=== PATIENT | female | born 1935 | race Caucasian/White ===

== ENCOUNTER 2018-05-24 12:44 | Inpatient (IN) | payer MEDICARE, MEDICAID ==
[~2018-05-24] VITALS: Ht 152.4 cm; Wt 56.4 kg
[2018-05-24 13:12] LABS: BASOPHILS % (AUTO) 0 % (0-1); EOSINOPHILS % (AUTO) 0 % (0-6); HEMATOCRIT 36.9 % (35.0-45.0); HEMOGLOBIN 11.9 g/dl (12.0-16.0); LYMPHOCYTES # (AUTO) 0.8 X10'3 (1.1-4.8); LYMPHOCYTES % (AUTO) 2.1 % (21-51); MEAN CORPUSCULAR HEMOGLOBIN 25.5 PG (27.0-31.0); MEAN CORPUSCULAR HGB CONC 32.3 % (33.0-36.5); MEAN CORPUSCULAR VOLUME 79.1 FL (78-98); MEAN PLATELET VOLUME 9.2 FL (7.4-10.4); MONOCYTES # (AUTO) 1.2 X10'3 (0-0.9); MONOCYTES % (AUTO) 3.4 % (2-12); NEUTROPHILS # (AUTO) 33.7 X10'3 (1.8-7.7); NEUTROPHILS % (AUTO) 94.5 % (42-75); PLATELET COUNT 244 X10'3 (140-440); RED BLOOD COUNT 4.66 X10'6 (4.20-5.60)
[2018-05-24 13:16] LABS: WHITE BLOOD COUNT 35.7 X10'3 (4.5-11.0)
[2018-05-24 13:22] LABS: INR 1.2 INR; PROTHROMBIN TIME 11.9 SECONDS (9.0-12.0)
[2018-05-24 13:27] LABS: ALANINE AMINOTRANSFERASE 19 U/L (12-78); ALBUMIN 2.2 G/DL (3.4-5.0); ALBUMIN/GLOBULIN RATIO 0.6 (1.1-1.5); ALKALINE PHOSPHATASE 108 IU/L (46-116); ANION GAP 13 (8-16); ASPARTATE AMINO TRANSFERASE 56 U/L (10-37); BILIRUBIN,TOTAL 0.5 MG/DL (0.1-1.0); BLOOD UREA NITROGEN 20 MG/DL (7-18); CALCIUM 7.7 MG/DL (8.5-10.1); CHLORIDE 109 MMOL/L (99-107); CREATININE 1.82 MG/DL (0.40-0.90); GLUCOSE 149 MG/DL (70-104); POTASSIUM 3.3 MMOL/L (3.5-5.1); SODIUM 144 MMOL/L (135-145); TOTAL CARBON DIOXIDE 22.3 MMOL/L (24-32); TOTAL PROTEIN 5.9 G/DL (6.4-8.2); eGFR 27 ML/MIN
[2018-05-24 13:29] LABS: ANISOCYTOSIS 3+; LARGE PLATELETS FEW; PLATELET ESTIMATE NORMAL; TOTAL CELLS COUNTED 100
[2018-05-24 13:30] LABS: HYPOCHROMASIA 1+; TARGET CELLS FEW
[2018-05-24 13:33] LABS: MAGNESIUM 2.2 MG/DL (1.5-2.4)
[2018-05-24 14:24] LABS: CLARITY,URINE CLOUDY (Clear); COLOR,URINE YELLOW (Yellow); GLUCOSE, URINE NEGATIVE (Neg); KETONES,URINE NEGATIVE (Neg); LEUKOCYTE ESTERASE ,URINE LARGE (Neg); NITRITES, URINE POSITIVE (Neg); OCCULT BLOOD,URINE LARGE (Neg); PROTEIN,URINE 30 mg/dl (Neg); UA COLLECTION TYPE STRAIGHT CATH; UROBILINOGEN,URINE 0.2 E.U/dL (0.2-1.0)
[2018-05-24 14:32] LABS: BACTERIA,URINE 4+ /HPF (Neg); WBC CLUMPS,URINE MANY /HPF (NEGATIVE); WBC,URINE 50-100 /HPF (0-4)
[2018-05-24 14:33] LABS: MUCUS STRANDS FEW /LPF (Neg)
[2018-05-24 14:34] LABS: SQUAMOUS EPITHELIAL CELL,UR NONE SEEN /LPF (FEW)
[2018-05-24] MEDS ORDERED: OXYB5TAB11 PO (14:38)
[2018-05-24] MEDS ORDERED: ASPI-1265 PO (14:38)
[2018-05-24] MEDS ORDERED: ALLO100T PO (14:38)
[2018-05-24] MEDS ORDERED: TRAM50TA2 PO (14:38)
[2018-05-24] MEDS ORDERED: RALO60TA55 PO (14:38)
[2018-05-24] MEDS ORDERED: PREG50CA PO (14:38)
[2018-05-24] MEDS ORDERED: LISI-600 PO (14:38)
[2018-05-24] MEDS ORDERED: UMEC1DIS INH (14:38)
[2018-05-24] MEDS ORDERED: magnesium 1gm/100ml D5W IVPB 100 ML IV PRN (14:45)
[2018-05-24] MEDS ORDERED: potassium Cl 20 mEq SR tablet PO PRN (14:45)
[2018-05-24] MEDS ORDERED: acetaminophen 325mg tablet PO PRN ×2 (14:45)
[2018-05-24] MEDS ORDERED: magnesium hydroxide 30ml (MOM) UD suspension PO PRN (14:45)
[2018-05-24] MEDS ORDERED: magnesium 4gm in 100ml NS 100 ML IV PRN (14:45)
[2018-05-24] MEDS ORDERED: ondansetron/PF 4mg/2ml inj IV PRN (14:45)
[2018-05-24] MEDS ORDERED: potassium Cl 40MEQ/NS 500ml 500 ML IV PRN ×2 (14:45)
[2018-05-24] MEDS ORDERED: mag hydrox/Alum hydrox/simeth 30ml oral suspension PO PRN (14:45)
[2018-05-24] MEDS ORDERED: magnesium Cl slow-release 64mg tablet PO PRN (14:45)
[2018-05-24] MEDS ORDERED: traMADol 50MG tablet PO PRN (14:55)
[2018-05-24] MEDS ORDERED: vancomycin/NS 1 GM ADD-VANTAGE 250 ML X 1 DOSE IV ONE (15:20)
[2018-05-24] MEDS: normal saline 1000ml 1,000 ML IV SCH (15:30)
[2018-05-24] MEDS ORDERED: temazepam 15mg capsule PO PRN (21:00)
[2018-05-24] MEDS ORDERED: non-formulary drug (Pregabalin (Lyrica) 1 CAP) PO SCH (21:00)
[2018-05-24 21:30] VITALS: BP 149/82
[2018-05-24] MEDS: pregabalin 25mg capsule PO SCH (22:17)
[2018-05-24] MEDS: heparin, porcine 5000 units/ml vial SQ SCH (22:18)
[2018-05-24] MEDS: potassium Cl 20 mEq SR tablet PO PRN (23:40)
[2018-05-25] VITALS: BP 136/71
[2018-05-25 01:36] LABS: BASOPHILS % (AUTO) 0.1 % (0-1); EOSINOPHILS % (AUTO) 0.1 % (0-6); HEMATOCRIT 36.4 % (35.0-45.0); LYMPHOCYTES # (AUTO) 1.3 X10'3 (1.1-4.8); MEAN CORPUSCULAR HEMOGLOBIN 26.1 PG (27.0-31.0); MEAN CORPUSCULAR HGB CONC 32.9 % (33.0-36.5); MEAN CORPUSCULAR VOLUME 79.5 FL (78-98); MEAN PLATELET VOLUME 9.4 FL (7.4-10.4); MONOCYTES # (AUTO) 1.4 X10'3 (0-0.9); MONOCYTES % (AUTO) 4.5 % (2-12); NEUTROPHILS # (AUTO) 28.6 X10'3 (1.8-7.7); NEUTROPHILS % (AUTO) 91.3 % (42-75); PLATELET COUNT 250 X10'3 (140-440); RED BLOOD COUNT 4.58 X10'6 (4.20-5.60); RED CELL DISTRIBUTION WIDTH 21.9 % (11.5-14.5)
[2018-05-25 01:50] LABS: WHITE BLOOD COUNT 31.3 X10'3 (4.5-11.0)
[2018-05-25 01:51] LABS: ALANINE AMINOTRANSFERASE 21 U/L (12-78); ALBUMIN/GLOBULIN RATIO 0.5 (1.1-1.5); ALKALINE PHOSPHATASE 96 IU/L (46-116); ANION GAP 9 (8-16); ASPARTATE AMINO TRANSFERASE 44 U/L (10-37); BILIRUBIN,TOTAL 0.5 MG/DL (0.1-1.0); BLOOD UREA NITROGEN 22 MG/DL (7-18); BUN/CREATININE RATIO 15.5 (6.6-38.0); CALCIUM 8.1 MG/DL (8.5-10.1); CHLORIDE 110 MMOL/L (99-107); CREATININE 1.42 MG/DL (0.40-0.90); GLUCOSE 90 MG/DL (70-104); POTASSIUM 3.7 MMOL/L (3.5-5.1); SODIUM 143 MMOL/L (135-145); TOTAL CARBON DIOXIDE 24.4 MMOL/L (24-32); TOTAL PROTEIN 6.2 G/DL (6.4-8.2); eGFR 35 ML/MIN
[2018-05-25 02:13] LABS: TOTAL CELLS COUNTED 100
[2018-05-25 02:14] LABS: ANISOCYTOSIS 3+; PLATELET ESTIMATE NORMAL; TARGET CELLS 1+
[2018-05-25] MEDS: normal saline 1000ml 1,000 ML IV SCH (03:13)
[2018-05-25] MEDS: ipratropium/albuterol 3ml nebule NEB PRN ×2 (03:24→12:03)
[2018-05-25 08:00] VITALS: BP 178/82
[2018-05-25] MEDS: oxybutynin 5mg tablet PO SCH (08:00)
[2018-05-25] MEDS ORDERED: non-formulary drug (Umeclidinium Brm/Vilanterol Tr (Anoro Ellipta 62.5-25 Mcg INH) 1 PUFF) INH SCH (08:00)
[2018-05-25] MEDS: K and/or MAG REPLACEMENT MC SCH (08:00)
[2018-05-25] MEDS: lactobacillus rhamnosus 10,000 MMU CELLS/CAPSULE PO SCH ×2 (08:00→20:43)
[2018-05-25] MEDS: allopurinol 100mg tablet PO SCH (08:00)
[2018-05-25] MEDS: raloxifene 60mg tablet PO SCH (08:00)
[2018-05-25] MEDS ORDERED: ANORO ELLIPTA IH SCH (08:00)
[2018-05-25] MEDS: aspirin 81mg tablet.DR PO SCH (08:00)
[2018-05-25] MEDS: cefepime 1GM/NS ADD-VANTAGE 100 ML IV SCH (08:01)
[2018-05-25] MEDS: lisinopril 10 MG tablet PO SCH (08:01)
[2018-05-25] MEDS: heparin, porcine 5000 units/ml vial SQ SCH ×2 (08:04→20:44)
[2018-05-25 09:42] LABS: HEMATOCRIT 35.7 % (35.0-45.0); HEMOGLOBIN 11.8 g/dl (12.0-16.0); MEAN CORPUSCULAR HEMOGLOBIN 25.7 PG (27.0-31.0); MEAN CORPUSCULAR HGB CONC 32.9 % (33.0-36.5); MEAN CORPUSCULAR VOLUME 78.1 FL (78-98); MEAN PLATELET VOLUME 9.5 FL (7.4-10.4); PLATELET COUNT 254 X10'3 (140-440); RED BLOOD COUNT 4.58 X10'6 (4.20-5.60); RED CELL DISTRIBUTION WIDTH 23.3 % (11.5-14.5)
[2018-05-25 09:48] LABS: WHITE BLOOD COUNT 27.7 X10'3 (4.5-11.0)
[2018-05-25 09:57] LABS: ANISOCYTOSIS 3+; PLATELET ESTIMATE NORMAL; TOTAL CELLS COUNTED 100
[2018-05-25 09:58] LABS: POLYCHROMASIA FEW; TARGET CELLS 1+
[2018-05-25 10:01] LABS: ALANINE AMINOTRANSFERASE 20 U/L (12-78); ALBUMIN/GLOBULIN RATIO 0.5 (1.1-1.5); ALKALINE PHOSPHATASE 96 IU/L (46-116); ANION GAP 9 (8-16); ASPARTATE AMINO TRANSFERASE 44 U/L (10-37); BILIRUBIN,TOTAL 0.5 MG/DL (0.1-1.0); BLOOD UREA NITROGEN 21 MG/DL (7-18); BUN/CREATININE RATIO 16.4 (6.6-38.0); CHLORIDE 109 MMOL/L (99-107); CREATININE 1.28 MG/DL (0.40-0.90); GLUCOSE 101 MG/DL (70-104); POTASSIUM 3.6 MMOL/L (3.5-5.1); SODIUM 142 MMOL/L (135-145); TOTAL CARBON DIOXIDE 23.8 MMOL/L (24-32); TOTAL PROTEIN 6.3 G/DL (6.4-8.2); eGFR 40 ML/MIN
[2018-05-25 10:04] LABS: TROPONIN I 0.15 NG/ML (0.0-0.05)
[2018-05-25] MEDS ORDERED: normal saline 1000ml 1,000 ML IV SCH (10:15)
[2018-05-25] MEDS: vancomycin/NS 1 GM ADD-VANTAGE 250 ML IV SCH (10:23)
[2018-05-25 10:26] LABS: ABG BASE EXCESS -2.4 mmol/L (-2.0-3.0); ABG HCO3 20.7 mmol/L (22.0-26.0); ABG OXYGEN SATURATION 88.6 % (95-98); ABG PCO2 (T) 30.9 mmHg (32.0-45.0); ABG PH (T) 7.443 (7.350-7.450); ABG PO2 (T) 51.7 mmHg (83-108); ALLEN'S TEST Positive; FCOHb 0.5 % (0.5-1.5); FLOW 15 L/min; FMetHb 0.2 % (0.3-1.12); TOTAL HEMOGLOBIN 13.2 G/dl (12.0-16.0)
[2018-05-25] MEDS ORDERED: metoprolol tartrate 1mg/ml inj IV PRN (10:35)
[2018-05-25] MEDS ORDERED: aminophylline 250mg/10ml inj. IV PRN (10:35)
[2018-05-25] MEDS ORDERED: nitroGLYCERIN 0.4mg SUBLingual tab SL PRN (10:35)
[2018-05-25] MEDS ORDERED: regadenoson 0.4mg/5ml syringe IV ONE (10:35)
[2018-05-25 12:00] VITALS: BP 164/95
[2018-05-25] MEDS: lactose-reduced food (Ensure Enlive) - 237ml bottle PO SCH ×2 (13:00→18:00)
[2018-05-25 13:18] LABS: ALBUMIN 2.3 G/DL (3.4-5.0); ANION GAP 12 (8-16); BLOOD UREA NITROGEN 19 MG/DL (7-18); BUN/CREATININE RATIO 12.8 (6.6-38.0); CALCIUM 8.3 MG/DL (8.5-10.1); CHLORIDE 108 MMOL/L (99-107); CREATININE 1.49 MG/DL (0.40-0.90); GLUCOSE 101 MG/DL (70-104); POTASSIUM 3.2 MMOL/L (3.5-5.1); SODIUM 143 MMOL/L (135-145); TOTAL CARBON DIOXIDE 23.3 MMOL/L (24-32); eGFR 33 ML/MIN
[2018-05-25] MEDS ORDERED: vancomycin/NS 1 GM ADD-VANTAGE 250 ML IV SCH (16:00)
[2018-05-25 18:00] VITALS: BP 161/92
[2018-05-25] MEDS: potassium Cl 20 mEq SR tablet PO PRN ×2 (19:01→23:44)
[2018-05-25] MEDS: nicotine 14mg patch - 24hr TD SCH (19:30)
[2018-05-25] MEDS: pregabalin 25mg capsule PO SCH (20:43)
[2018-05-25 23:30] VITALS: BP 150/91
[2018-05-25] MEDS: methylPREDNISolone sod succ/PF 40mg inj. IV SCH (23:44)
[2018-05-26] VITALS (12 sets, daily range): BP systolic 129–165; BP diastolic 63–93
[2018-05-26] MEDS: potassium Cl 20 mEq SR tablet PO PRN (03:56)
[2018-05-26 06:04] LABS: BASOPHILS % (AUTO) 0 % (0-1); EOSINOPHILS % (AUTO) 0 % (0-6); HEMATOCRIT 39.1 % (35.0-45.0); HEMOGLOBIN 12.6 g/dl (12.0-16.0); LYMPHOCYTES # (AUTO) 0.4 X10'3 (1.1-4.8); LYMPHOCYTES % (AUTO) 1.7 % (21-51); MEAN CORPUSCULAR HEMOGLOBIN 25.3 PG (27.0-31.0); MEAN CORPUSCULAR HGB CONC 32.3 % (33.0-36.5); MEAN CORPUSCULAR VOLUME 78.5 FL (78-98); MEAN PLATELET VOLUME 9.9 FL (7.4-10.4); MONOCYTES # (AUTO) 0.2 X10'3 (0-0.9); MONOCYTES % (AUTO) 0.9 % (2-12); NEUTROPHILS # (AUTO) 19.9 X10'3 (1.8-7.7); NEUTROPHILS % (AUTO) 97.4 % (42-75); PLATELET COUNT 276 X10'3 (140-440); RED BLOOD COUNT 4.98 X10'6 (4.20-5.60); RED CELL DISTRIBUTION WIDTH 23.8 % (11.5-14.5); WHITE BLOOD COUNT 20.5 X10'3 (4.5-11.0)
[2018-05-26 06:29] LABS: ALANINE AMINOTRANSFERASE 24 U/L (12-78); ALBUMIN 2.1 G/DL (3.4-5.0); ALBUMIN/GLOBULIN RATIO 0.4 (1.1-1.5); ALKALINE PHOSPHATASE 98 IU/L (46-116); ANION GAP 12 (8-16); ASPARTATE AMINO TRANSFERASE 37 U/L (10-37); BILIRUBIN,TOTAL 0.5 MG/DL (0.1-1.0); BLOOD UREA NITROGEN 18 MG/DL (7-18); BUN/CREATININE RATIO 16.7 (6.6-38.0); CALCIUM 8.4 MG/DL (8.5-10.1); CHLORIDE 107 MMOL/L (99-107); CREATININE 1.08 MG/DL (0.40-0.90); GLUCOSE 135 MG/DL (70-104); MAGNESIUM 1.7 MG/DL (1.5-2.4); POTASSIUM 4.4 MMOL/L (3.5-5.1); SODIUM 141 MMOL/L (135-145); TOTAL CARBON DIOXIDE 22.2 MMOL/L (24-32); TOTAL PROTEIN 6.8 G/DL (6.4-8.2); eGFR 48 ML/MIN
[2018-05-26] MEDS: K and/or MAG REPLACEMENT MC SCH (08:00)
[2018-05-26] MEDS: lactose-reduced food (Ensure Enlive) - 237ml bottle PO SCH ×3 (08:00→18:00)
[2018-05-26] MEDS: nicotine 14mg patch - 24hr TD SCH (08:00)
[2018-05-26] MEDS: raloxifene 60mg tablet PO SCH (08:01)
[2018-05-26] MEDS: methylPREDNISolone sod succ/PF 40mg inj. IV SCH ×2 (08:01→16:19)
[2018-05-26] MEDS: cefepime 1GM/NS ADD-VANTAGE 100 ML IV SCH (08:01)
[2018-05-26] MEDS: allopurinol 100mg tablet PO SCH (08:02)
[2018-05-26] MEDS: lactobacillus rhamnosus 10,000 MMU CELLS/CAPSULE PO SCH ×2 (08:02→20:37)
[2018-05-26] MEDS: oxybutynin 5mg tablet PO SCH (08:02)
[2018-05-26] MEDS: aspirin 81mg tablet.DR PO SCH (08:02)
[2018-05-26] MEDS: lisinopril 10 MG tablet PO SCH (08:03)
[2018-05-26] MEDS: heparin, porcine 5000 units/ml vial SQ SCH ×2 (08:04→20:37)
[2018-05-26] MEDS: vancomycin/NS 1 GM ADD-VANTAGE 250 ML IV SCH (10:21)
[2018-05-26] MEDS: normal saline 1000ml 1,000 ML IV SCH (11:56)
[2018-05-26] MEDS ORDERED: regadenoson 0.4mg/5ml syringe IV ONE (14:25)
[2018-05-26] MEDS ORDERED: aminophylline inj. 10 ML IV ONE (14:25)
[2018-05-26] MEDS: pregabalin 25mg capsule PO SCH (20:37)
[2018-05-27] VITALS: BP 152/89
[2018-05-27] MEDS: methylPREDNISolone sod succ/PF 40mg inj. IV SCH ×4 (00:08→23:47)
[2018-05-27 06:48] LABS: BASOPHILS % (AUTO) 0 % (0-1); EOSINOPHILS % (AUTO) 0 % (0-6); HEMATOCRIT 38.6 % (35.0-45.0); HEMOGLOBIN 12.7 g/dl (12.0-16.0); LYMPHOCYTES # (AUTO) 0.6 X10'3 (1.1-4.8); LYMPHOCYTES % (AUTO) 2.8 % (21-51); MEAN CORPUSCULAR HEMOGLOBIN 25.8 PG (27.0-31.0); MEAN CORPUSCULAR HGB CONC 32.9 % (33.0-36.5); MEAN CORPUSCULAR VOLUME 78.3 FL (78-98); MEAN PLATELET VOLUME 10.6 FL (7.4-10.4); MONOCYTES # (AUTO) 0.4 X10'3 (0-0.9); MONOCYTES % (AUTO) 1.8 % (2-12); NEUTROPHILS # (AUTO) 19.2 X10'3 (1.8-7.7); NEUTROPHILS % (AUTO) 95.4 % (42-75); PLATELET COUNT 268 X10'3 (140-440); RED BLOOD COUNT 4.92 X10'6 (4.20-5.60); RED CELL DISTRIBUTION WIDTH 23.6 % (11.5-14.5); WHITE BLOOD COUNT 20.2 X10'3 (4.5-11.0)
[2018-05-27 07:26] LABS: ALANINE AMINOTRANSFERASE 20 U/L (12-78); ALBUMIN 2.1 G/DL (3.4-5.0); ALBUMIN/GLOBULIN RATIO 0.5 (1.1-1.5); ALKALINE PHOSPHATASE 100 IU/L (46-116); ANION GAP 11 (8-16); ASPARTATE AMINO TRANSFERASE 25 U/L (10-37); BILIRUBIN,TOTAL 0.4 MG/DL (0.1-1.0); BLOOD UREA NITROGEN 27 MG/DL (7-18); CALCIUM 8.5 MG/DL (8.5-10.1); CHLORIDE 107 MMOL/L (99-107); CREATININE 1.04 MG/DL (0.40-0.90); GLUCOSE 126 MG/DL (70-104); MAGNESIUM 1.9 MG/DL (1.5-2.4); POTASSIUM 4.3 MMOL/L (3.5-5.1); SODIUM 140 MMOL/L (135-145); TOTAL CARBON DIOXIDE 21.8 MMOL/L (24-32); TOTAL PROTEIN 6.7 G/DL (6.4-8.2); eGFR 51 ML/MIN
[2018-05-27 08:00] VITALS: BP 157/100
[2018-05-27] MEDS: nicotine 14mg patch - 24hr TD SCH (08:00)
[2018-05-27] MEDS: K and/or MAG REPLACEMENT MC SCH (08:00)
[2018-05-27] MEDS: lactose-reduced food (Ensure Enlive) - 237ml bottle PO SCH ×3 (08:00→18:00)
[2018-05-27] MEDS: heparin, porcine 5000 units/ml vial SQ SCH ×2 (08:31→20:31)
[2018-05-27] MEDS: cefepime 1GM/NS ADD-VANTAGE 100 ML IV SCH (08:34)
[2018-05-27] MEDS: allopurinol 100mg tablet PO SCH (08:34)
[2018-05-27] MEDS: lactobacillus rhamnosus 10,000 MMU CELLS/CAPSULE PO SCH ×2 (08:34→20:31)
[2018-05-27] MEDS: aspirin 81mg tablet.DR PO SCH (08:34)
[2018-05-27] MEDS: oxybutynin 5mg tablet PO SCH (08:37)
[2018-05-27] MEDS: lisinopril 10 MG tablet PO SCH (08:37)
[2018-05-27] MEDS: raloxifene 60mg tablet PO SCH (08:37)
[2018-05-27] MEDS: normal saline 1000ml 1,000 ML IV SCH ×3 (09:09→23:27)
[2018-05-27] MEDS ORDERED: magnesium 2GM in 50ml NS 50 ML IV PRN (09:40)
[2018-05-27] MEDS: vancomycin/NS 1 GM ADD-VANTAGE 250 ML IV SCH (10:21)
[2018-05-27 10:42] LABS: ANISOCYTOSIS 3+; MICROCYTOSIS 1+; PLATELET ESTIMATE NORMAL; POLYCHROMASIA 1+
[2018-05-27 11:00] VITALS: BP 164/98
[2018-05-27] MEDS ORDERED: VANCOMYCIN LEVEL IV NR (15:30)
[2018-05-27 20:00] VITALS: BP 159/89
[2018-05-27] MEDS: pregabalin 25mg capsule PO SCH (20:31)
[2018-05-28 00:05] VITALS: BP 145/95
[2018-05-28] MEDS: normal saline 1000ml 1,000 ML IV SCH ×2 (04:45→17:08)
[2018-05-28 06:24] LABS: BASOPHILS % (AUTO) 0.1 % (0-1); EOSINOPHILS % (AUTO) 0 % (0-6); HEMATOCRIT 41.5 % (35.0-45.0); HEMOGLOBIN 13.2 g/dl (12.0-16.0); LYMPHOCYTES # (AUTO) 0.7 X10'3 (1.1-4.8); LYMPHOCYTES % (AUTO) 3.5 % (21-51); MEAN CORPUSCULAR HEMOGLOBIN 25.2 PG (27.0-31.0); MEAN CORPUSCULAR HGB CONC 31.8 % (33.0-36.5); MEAN CORPUSCULAR VOLUME 79.2 FL (78-98); MEAN PLATELET VOLUME 10.2 FL (7.4-10.4); MONOCYTES # (AUTO) 0.2 X10'3 (0-0.9); NEUTROPHILS # (AUTO) 18.6 X10'3 (1.8-7.7); NEUTROPHILS % (AUTO) 95.4 % (42-75); PLATELET COUNT 276 X10'3 (140-440); RED BLOOD COUNT 5.24 X10'6 (4.20-5.60); RED CELL DISTRIBUTION WIDTH 23.3 % (11.5-14.5); WHITE BLOOD COUNT 19.5 X10'3 (4.5-11.0)
[2018-05-28 06:36] LABS: ALANINE AMINOTRANSFERASE 22 U/L (12-78); ALBUMIN 2.3 G/DL (3.4-5.0); ALBUMIN/GLOBULIN RATIO 0.5 (1.1-1.5); ALKALINE PHOSPHATASE 97 IU/L (46-116); ANION GAP 7 (8-16); ASPARTATE AMINO TRANSFERASE 23 U/L (10-37); BILIRUBIN,TOTAL 0.4 MG/DL (0.1-1.0); BLOOD UREA NITROGEN 30 MG/DL (7-18); BUN/CREATININE RATIO 27.3 (6.6-38.0); CALCIUM 8.5 MG/DL (8.5-10.1); CHLORIDE 108 MMOL/L (99-107); GLUCOSE 132 MG/DL (70-104); POTASSIUM 3.9 MMOL/L (3.5-5.1); SODIUM 141 MMOL/L (135-145); TOTAL CARBON DIOXIDE 25.6 MMOL/L (24-32); eGFR 47 ML/MIN
[2018-05-28 07:44] LABS: ANISOCYTOSIS 3+; MICROCYTOSIS 1+; PLATELET ESTIMATE NORMAL; POLYCHROMASIA FEW; TARGET CELLS FEW
[2018-05-28 08:00] VITALS: BP 164/86
[2018-05-28] MEDS: K and/or MAG REPLACEMENT MC SCH (08:00)
[2018-05-28] MEDS: methylPREDNISolone sod succ/PF 40mg inj. IV SCH ×2 (08:27→17:08)
[2018-05-28] MEDS: nicotine prolacrilex 2mg gum BC PRN (08:27)
[2018-05-28] MEDS: oxybutynin 5mg tablet PO SCH (08:28)
[2018-05-28] MEDS: heparin, porcine 5000 units/ml vial SQ SCH ×2 (08:28→20:18)
[2018-05-28] MEDS: lactobacillus rhamnosus 10,000 MMU CELLS/CAPSULE PO SCH ×2 (08:28→20:18)
[2018-05-28] MEDS: aspirin 81mg tablet.DR PO SCH (08:28)
[2018-05-28] MEDS: allopurinol 100mg tablet PO SCH (08:28)
[2018-05-28] MEDS: lisinopril 10 MG tablet PO SCH (08:29)
[2018-05-28] MEDS: lactose-reduced food (Ensure Enlive) - 237ml bottle PO SCH ×4 (08:29→18:00)
[2018-05-28] MEDS: raloxifene 60mg tablet PO SCH (08:33)
[2018-05-28] MEDS ORDERED: VANCOMYCIN LEVEL IV ONE (09:30)
[2018-05-28] MEDS ORDERED: levoFLOXACIN 750MG TABLET PO SCH (11:00)
[2018-05-28 12:00] VITALS: BP 147/72
[2018-05-28 20:00] VITALS: BP 169/80
[2018-05-28] MEDS: pregabalin 25mg capsule PO SCH (20:18)
[2018-05-29] VITALS (7 sets, daily range): BP systolic 152–189; BP diastolic 80–116
[2018-05-29] MEDS: methylPREDNISolone sod succ/PF 40mg inj. IV SCH ×3 (00:25→16:44)
[2018-05-29 06:06] LABS: BASOPHILS # (AUTO) 0.1 X10'3 (0-0.2); BASOPHILS % (AUTO) 0.4 % (0-1); EOSINOPHILS % (AUTO) 0 % (0-6); HEMOGLOBIN 12.6 g/dl (12.0-16.0); LYMPHOCYTES # (AUTO) 0.7 X10'3 (1.1-4.8); LYMPHOCYTES % (AUTO) 4.6 % (21-51); MEAN CORPUSCULAR HEMOGLOBIN 25.5 PG (27.0-31.0); MEAN CORPUSCULAR HGB CONC 32.2 % (33.0-36.5); MEAN CORPUSCULAR VOLUME 79.3 FL (78-98); MEAN PLATELET VOLUME 9.8 FL (7.4-10.4); MONOCYTES # (AUTO) 0.4 X10'3 (0-0.9); MONOCYTES % (AUTO) 2.6 % (2-12); NEUTROPHILS # (AUTO) 14.7 X10'3 (1.8-7.7); NEUTROPHILS % (AUTO) 92.4 % (42-75); PLATELET COUNT 260 X10'3 (140-440); RED BLOOD COUNT 4.93 X10'6 (4.20-5.60); RED CELL DISTRIBUTION WIDTH 23.1 % (11.5-14.5); WHITE BLOOD COUNT 15.9 X10'3 (4.5-11.0)
[2018-05-29 06:19] LABS: ALANINE AMINOTRANSFERASE 22 U/L (12-78); ALBUMIN 2.1 G/DL (3.4-5.0); ALBUMIN/GLOBULIN RATIO 0.5 (1.1-1.5); ALKALINE PHOSPHATASE 73 IU/L (46-116); ANION GAP 9 (8-16); ASPARTATE AMINO TRANSFERASE 21 U/L (10-37); BILIRUBIN,TOTAL 0.4 MG/DL (0.1-1.0); BLOOD UREA NITROGEN 31 MG/DL (7-18); CALCIUM 7.7 MG/DL (8.5-10.1); CHLORIDE 107 MMOL/L (99-107); GLUCOSE 130 MG/DL (70-104); MAGNESIUM 1.8 MG/DL (1.5-2.4); POTASSIUM 3.6 MMOL/L (3.5-5.1); SODIUM 143 MMOL/L (135-145); TOTAL CARBON DIOXIDE 26.8 MMOL/L (24-32); TOTAL PROTEIN 6.2 G/DL (6.4-8.2); eGFR 53 ML/MIN
[2018-05-29] MEDS: K and/or MAG REPLACEMENT MC SCH (08:00)
[2018-05-29] MEDS: lactobacillus rhamnosus 10,000 MMU CELLS/CAPSULE PO SCH ×2 (08:29→19:24)
[2018-05-29] MEDS: normal saline 1000ml 1,000 ML IV SCH (08:29)
[2018-05-29] MEDS: oxybutynin 5mg tablet PO SCH (08:30)
[2018-05-29] MEDS: allopurinol 100mg tablet PO SCH (08:30)
[2018-05-29] MEDS: raloxifene 60mg tablet PO SCH (08:30)
[2018-05-29] MEDS: aspirin 81mg tablet.DR PO SCH (08:30)
[2018-05-29] MEDS: heparin, porcine 5000 units/ml vial SQ SCH ×2 (08:32→19:28)
[2018-05-29] MEDS: lisinopril 10 MG tablet PO SCH (08:32)
[2018-05-29] MEDS: lactose-reduced food (Ensure Enlive) - 237ml bottle PO SCH ×3 (08:32→18:05)
[2018-05-29] MEDS: hydrALAZINE 20mg/ml inj. IV PRN ×2 (11:23→21:08)
[2018-05-29] MEDS: nicotine prolacrilex 2mg gum BC PRN (14:27)
[2018-05-29] MEDS: potassium Cl 20 mEq SR tablet PO SCH (18:01)
[2018-05-29] MEDS: levoFLOXACIN 750MG TABLET PO SCH (18:01)
[2018-05-29] MEDS: methylPREDNISolone sod succ 125mg/2ml vial IV SCH ×2 (18:06→19:26)
[2018-05-29] MEDS: furosemide 20 MG/2 ML vial IV SCH (19:25)
[2018-05-29] MEDS: ipratropium/albuterol 3ml nebule NEB SCH ×2 (19:43→23:25)
[2018-05-29] MEDS: pregabalin 25mg capsule PO SCH (20:44)
[2018-05-30] VITALS: BP 146/72
[2018-05-30] MEDS: methylPREDNISolone sod succ 125mg/2ml vial IV SCH ×3 (02:29→16:16)
[2018-05-30] MEDS: ipratropium/albuterol 3ml nebule NEB SCH ×6 (03:04→23:29)
[2018-05-30 05:39] LABS: BASOPHILS % (AUTO) 0 % (0-1); EOSINOPHILS % (AUTO) 0 % (0-6); HEMATOCRIT 40.7 % (35.0-45.0); HEMOGLOBIN 13.1 g/dl (12.0-16.0); LYMPHOCYTES # (AUTO) 0.5 X10'3 (1.1-4.8); LYMPHOCYTES % (AUTO) 3.1 % (21-51); MEAN CORPUSCULAR HEMOGLOBIN 25.2 PG (27.0-31.0); MEAN CORPUSCULAR HGB CONC 32.2 % (33.0-36.5); MEAN CORPUSCULAR VOLUME 78.5 FL (78-98); MEAN PLATELET VOLUME 10.2 FL (7.4-10.4); MONOCYTES # (AUTO) 0.7 X10'3 (0-0.9); MONOCYTES % (AUTO) 4.4 % (2-12); NEUTROPHILS # (AUTO) 14.7 X10'3 (1.8-7.7); NEUTROPHILS % (AUTO) 92.5 % (42-75); PLATELET COUNT 296 X10'3 (140-440); RED BLOOD COUNT 5.19 X10'6 (4.20-5.60); RED CELL DISTRIBUTION WIDTH 22.7 % (11.5-14.5); WHITE BLOOD COUNT 15.9 X10'3 (4.5-11.0)
[2018-05-30 05:55] LABS: ALANINE AMINOTRANSFERASE 35 U/L (12-78); ALBUMIN 2.4 G/DL (3.4-5.0); ALBUMIN/GLOBULIN RATIO 0.6 (1.1-1.5); ALKALINE PHOSPHATASE 75 IU/L (46-116); ANION GAP 12 (8-16); ASPARTATE AMINO TRANSFERASE 36 U/L (10-37); BILIRUBIN,TOTAL 0.6 MG/DL (0.1-1.0); BLOOD UREA NITROGEN 30 MG/DL (7-18); BUN/CREATININE RATIO 23.1 (6.6-38.0); CHLORIDE 103 MMOL/L (99-107); GLUCOSE 142 MG/DL (70-104); MAGNESIUM 1.7 MG/DL (1.5-2.4); POTASSIUM 3.2 MMOL/L (3.5-5.1); SODIUM 141 MMOL/L (135-145); TOTAL CARBON DIOXIDE 25.7 MMOL/L (24-32); TOTAL PROTEIN 6.6 G/DL (6.4-8.2); eGFR 39 ML/MIN
[2018-05-30] MEDS: K and/or MAG REPLACEMENT MC SCH (08:00)
[2018-05-30] MEDS: aspirin 81mg tablet.DR PO SCH (08:01)
[2018-05-30] MEDS: oxybutynin 5mg tablet PO SCH (08:01)
[2018-05-30] MEDS: lactobacillus rhamnosus 10,000 MMU CELLS/CAPSULE PO SCH ×2 (08:01→20:05)
[2018-05-30] MEDS: lisinopril 10 MG tablet PO SCH (08:02)
[2018-05-30] MEDS: raloxifene 60mg tablet PO SCH (08:02)
[2018-05-30] MEDS: allopurinol 100mg tablet PO SCH (08:02)
[2018-05-30] MEDS: pantoprazole 40mg Tablet.DR PO SCH (08:02)
[2018-05-30] MEDS: heparin, porcine 5000 units/ml vial SQ SCH ×2 (08:03→20:06)
[2018-05-30] MEDS: potassium Cl 20 mEq SR tablet PO SCH ×2 (08:03→17:50)
[2018-05-30] MEDS: furosemide 20 MG/2 ML vial IV SCH ×2 (08:03→20:06)
[2018-05-30] MEDS: lactose-reduced food (Ensure Enlive) - 237ml bottle PO SCH ×3 (08:03→17:51)
[2018-05-30 08:05] VITALS: BP 137/75
[2018-05-30] MEDS ORDERED: levoFLOXACIN 750MG TABLET PO SCH (11:00)
[2018-05-30 12:00] VITALS: BP 116/69
[2018-05-30] MEDS ORDERED: potassium Cl 20 mEq SR tablet PO ONE (12:00)
[2018-05-30] MEDS: theophylline anhydrous 100mg ER capsule 24-hour PO SCH (16:15)
[2018-05-30 20:00] VITALS: BP 129/67
[2018-05-30] MEDS: pregabalin 25mg capsule PO SCH (20:06)
[2018-05-31] VITALS: BP 128/75
[2018-05-31] MEDS: methylPREDNISolone sod succ 125mg/2ml vial IV SCH ×3 (01:48→16:00)
[2018-05-31] MEDS: ipratropium/albuterol 3ml nebule NEB SCH ×3 (03:30→10:40)
[2018-05-31 06:40] LABS: ALANINE AMINOTRANSFERASE 56 U/L (12-78); ALBUMIN 2.6 G/DL (3.4-5.0); ALBUMIN/GLOBULIN RATIO 0.7 (1.1-1.5); ALKALINE PHOSPHATASE 76 IU/L (46-116); ANION GAP 12 (8-16); ASPARTATE AMINO TRANSFERASE 48 U/L (10-37); BILIRUBIN,TOTAL 0.5 MG/DL (0.1-1.0); BLOOD UREA NITROGEN 42 MG/DL (7-18); BUN/CREATININE RATIO 28.4 (6.6-38.0); CALCIUM 8.2 MG/DL (8.5-10.1); CHLORIDE 104 MMOL/L (99-107); CREATININE 1.48 MG/DL (0.40-0.90); GLUCOSE 132 MG/DL (70-104); POTASSIUM 4.1 MMOL/L (3.5-5.1); SODIUM 142 MMOL/L (135-145); TOTAL CARBON DIOXIDE 26.2 MMOL/L (24-32); TOTAL PROTEIN 6.5 G/DL (6.4-8.2); eGFR 34 ML/MIN
[2018-05-31 07:09] VITALS: BP 141/80
[2018-05-31 07:30] VITALS: BP 131/77
[2018-05-31] MEDS: K and/or MAG REPLACEMENT MC SCH (07:38)
[2018-05-31] MEDS: furosemide 20 MG/2 ML vial IV SCH (07:49)
[2018-05-31] MEDS: theophylline anhydrous 100mg ER capsule 24-hour PO SCH (07:50)
[2018-05-31] MEDS: lactose-reduced food (Ensure Enlive) - 237ml bottle PO SCH ×2 (07:51→12:33)
[2018-05-31] MEDS: lactobacillus rhamnosus 10,000 MMU CELLS/CAPSULE PO SCH (08:17)
[2018-05-31] MEDS: pantoprazole 40mg Tablet.DR PO SCH (08:17)
[2018-05-31] MEDS: oxybutynin 5mg tablet PO SCH (08:17)
[2018-05-31] MEDS: aspirin 81mg tablet.DR PO SCH (08:18)
[2018-05-31] MEDS: lisinopril 10 MG tablet PO SCH (08:19)
[2018-05-31] MEDS: allopurinol 100mg tablet PO SCH (08:20)
[2018-05-31] MEDS: potassium Cl 20 mEq SR tablet PO SCH ×2 (08:20→17:15)
[2018-05-31] MEDS: levoFLOXACIN 750MG TABLET PO SCH (08:21)
[2018-05-31] MEDS: raloxifene 60mg tablet PO SCH (08:21)
[2018-05-31] MEDS: heparin, porcine 5000 units/ml vial SQ SCH (08:28)
[2018-05-31 11:00] VITALS: BP 124/71
[2018-05-31] MEDS ORDERED: FURO-150 PO (11:42)
[2018-05-31] MEDS ORDERED: PANT40TA4 PO (11:42)
[2018-05-31] MEDS ORDERED: PRED10TA23 PO (11:42)
[2018-05-31] MEDS ORDERED: IPRA4AER IH (11:42)
[2018-05-31] MEDS ORDERED: POTA20TA19 PO (11:42)
[2018-05-31] MEDS ORDERED: LEVO750T46 PO (11:42)
== END 2018-05-31 17:50 | disposition home or self-care (01) | DRG 871 ==
LOC: ER 12:44 → ED HOLD 14:43 → EDBEDREQ 20:26 → SUR 3N 21:20
PROVIDERS: ADMIT Family Medicine; ATTEND Internal Medicine
PROC: CB121ZZ Planar Nuclear Medicine Imaging of Lungs and Bronchi using Technetium 99m (Tc-99m) (ICD-10-PCS; 2018-05-25)
PROC: 4A02XM4 Measurement of Cardiac Total Activity, External Approach (ICD-10-PCS; principal; 2018-05-26)
PROC: 3E033HZ Introduction of Radioactive Substance into Peripheral Vein, Percutaneous Approach (ICD-10-PCS; 2018-05-26)
DX: A41.51 Sepsis due to Escherichia coli [E. coli] (principal); I21.A1 Myocardial infarction type 2; I50.31 Acute diastolic (congestive) heart failure; J96.20 Acute and chronic respiratory failure, unspecified whether with hypoxia or hypercapnia; N39.0 Urinary tract infection, site not specified; N17.9 Acute kidney failure, unspecified; N18.4 Chronic kidney disease, stage 4 (severe); J44.1 Chronic obstructive pulmonary disease with (acute) exacerbation; I13.0 Hypertensive heart and chronic kidney disease with heart failure and stage 1 through stage 4 chronic kidney disease, or unspecified chronic kidney disease; D45 Polycythemia vera; B96.20 Unspecified Escherichia coli [E. coli] as the cause of diseases classified elsewhere; E87.6 Hypokalemia; F17.200 Nicotine dependence, unspecified, uncomplicated; I48.0 Paroxysmal atrial fibrillation; F32.9 Major depressive disorder, single episode, unspecified; M10.9 Gout, unspecified; Z66 Do not resuscitate; Z99.81 Dependence on supplemental oxygen; Z90.710 Acquired absence of both cervix and uterus; Z79.82 Long term (current) use of aspirin; Z79.899 Other long term (current) drug therapy; Z71.6 Tobacco abuse counseling
CPT/HCPCS: 36415; 36600; 71045; 71046; 78452; 78582; 80048; 80053; 81001; 82803; 83605; 83735; 83880; 84145; 84484; 85018; 85025; 85610; 87040; 87070; 87077; 87088; 87186; 93005; 93017; 93306; 94640; 94760; 97110; 97116; 97162; 97530; 99285; A9500; A9539; A9540; G0378; J0280; J0360; J0692; J1644; J1940; J2920; J2930; J3370; J7030